=== PATIENT | male | born 1995 | race African-American/Black ===

== ENCOUNTER 2018-09-05 16:27 | Emergency (ER) | payer SELFPAY ==
--- NOTE | 2018-09-05 17:15 | RAD ---
EXAM: RIGHT WRIST THREE VIEWS: 09/05/18 HISTORY: Right wrist pain and injury. COMPARISON: 02/16/16. FINDINGS: Unfused ulnar styloid process. No evidence for acute fracture or dislocation. IMPRESSION: No evidence for acute fracture or dislocation. Overall stable appearing unfused ulnar styloid process . POS: [facility]
== END 2018-09-05 17:05 | disposition home or self-care (01) ==
LOC: SCSER 16:27
DX: S63.501A Unspecified sprain of right wrist, initial encounter (principal); X50.1XXA Overexertion from prolonged static or awkward postures, initial encounter